=== PATIENT | female | born 1935 | race Caucasian/White ===

== ENCOUNTER 2019-08-15 10:26 | Emergency (ER) | payer OTHER ==
[~2019-08-15] VITALS: Ht 165.1 cm; Wt 81.6 kg
[2019-08-15] MEDS ORDERED: TOPROL XL25 M1 (10:47)
[2019-08-15] MEDS ORDERED: AROMASIN25 MG (10:48)
== END 2019-08-15 15:49 | disposition home or self-care (01) ==
LOC: ER 10:26
DX: M79.604 Pain in right leg (principal); R60.0 Localized edema